=== PATIENT | male | born 1985 | race African-American/Black ===

== ENCOUNTER 2021-04-15 06:58 | Emergency (ER) | payer OTHER ==
--- NOTE | 2021-04-15 08:30 | EDM.PDOC ---
ED HPI GENERAL MEDICAL PROBLEM - General Chief Complaint: Upper Extremity Injury/Pain Stated Complaint: FROSTBITE TO HAND Time Seen by Provider: 04/15/21 08:19 - History of Present Illness INITIAL COMMENTS - FREE TEXT/NARRATIVE: 36-year-old male presents the emergency room with frostbite injury to the left hand. Yesterday around 6:30 in the evening patient developed significant discomfort and is less fingers namely the middle ring and pinky fingers. Patient has no prior history of frostbite type injury. He is uncertain when his last tetanus shot was. Patient has no other significant medical issues. Left hand Pain Score (Numeric/FACES): 10 - Related Data Allergies Allergy/AdvReac Type Severity Reaction Status Date / Time No Known Allergies Allergy Verified 04/15/21 07:45 Home Meds: Home Meds Albuterol [Proventil] 1 inh INH ASDIRECTED PRN 04/15/21 [History] Past Medical History Cardiovascular History: Reports: Hypertension Respiratory History: Reports: Asthma - Infectious Disease History Infectious Disease History: Reports: Chicken Pox - Past Surgical History Musculoskeletal Surgical History: Reports: Other (See Below) Other Musculoskeletal Surgeries/Procedures:: Plate in right arm Social & Family History - Family History Family Medical History: No Pertinent Family History - Tobacco Use Tobacco Use Status *Q: Current Every Day Tobacco User Years of Tobacco use: 10 Packs/Tins Daily: 0.1 - Caffeine Use Caffeine Use: Reports: Coffee, Energy Drinks, Soda, Tea - Recreational Drug Use Recreational Drug Use: No Review of Systems - Review of Systems Review Of Systems: See Below Constitutional: Reports: No Symptoms Respiratory: Reports: No Symptoms Cardiovascular: Reports: No Symptoms GI/Abdominal: Reports: No Symptoms ED EXAM, GENERAL - Physical Exam Exam: See Below Exam Limited By: No Limitations General Appearance: Alert, No Apparent Distress Head: Atraumatic, Normocephalic Neck: Normal Inspection, Supple, Non-Tender, Full Range of Motion Respiratory/Chest: No Respiratory Distress, Lungs Clear, Normal Breath Sounds Cardiovascular: Regular Rate, Rhythm, No Edema, No Murmur Extremities: Other (Patient has what appears to be partial-thickness injuries to the palmar surfaces of a cyst middle ring and pinky fingers. The distal portion beyond the flexor crease is blistered on the pinky and ring fingers) Neurological: Alert, Oriented, Normal Cognition Psychiatric: Normal Affect, Normal Mood Course - Vital Signs Last Recorded V/S: Last Vital Signs Temp 37.5 C 04/15/21 07:44 Pulse 115 H 04/15/21 07:44 Resp 16 04/15/21 07:44 BP 111/96 H 04/15/21 07:44 Pulse Ox 96 04/15/21 07:44 - Re-Assessments/Exams Free Text/Narrative Re-Assessment/Exam: 04/15/21 09:[address] Vasquez, burn specialist at the [facility] in [facility]. She agrees with nonsteroidal therapy no cold exposure and follow-up probably the telemedicine route early this next week. Patient's demographics been faxed to the [facility] transfer center. Graph I attempted to update this gentlemen's tetanus status however they would like to hold off and double check his status. Departure - Departure Time of Disposition: 09:05 Disposition: Home, Self-Care Clinical Impression: Frostbite of finger of left hand - Discharge Information Referrals: PCP,None [Primary Care Provider] - Forms: ED Department Discharge, ED Return to Work/School Form Additional Instructions: Return to the emergency room with any questions problems or worsening symptoms. Contacted the [facility] their clinic phone number is [phone] call them Saturday to arrange follow-up. Ibuprofen 800 mg 3 times a day with meals for the discomfort. Double check your tetanus status and make sure this is up-to-date. Do this as soon as possible preferably today. You may return to work but you must not be exposed to cold. You can use your left hand with gentle tasks as tolerated. Sepsis Event Note (ED) - Evaluation Sepsis Screening Result: No Definite Risk - Focused Exam Vital Signs: Vital Signs Temp Pulse Resp BP Pulse Ox 04/15/21 07:44 37.5 C 115 H 16 111/96 H 96
[2021-04-15] MEDS ORDERED: Diphtheria,Pertussis(Acell),Tetanus Vaccine 0.5 ML Syringe IM ONE (08:53)
== END 2021-04-15 09:20 | disposition home or self-care (01) ==
LOC: JD.ED 06:58
DX: T33.532A Superficial frostbite of left finger(s), initial encounter (principal); I10 Essential (primary) hypertension; Z72.0 Tobacco use; X31.XXXA Exposure to excessive natural cold, initial encounter
CPT/HCPCS: 99283